=== PATIENT | female | born 1970 | race Caucasian/White ===

== ENCOUNTER → 2017-11-13 | Outpatient (CLI) | payer OTHER ==
--- NOTE | 2017-11-13 11:41 | MRI ---
HISTORY: Hyperprolactinemia, headaches with nausea, visual disturbances Study: MRI brain pituitary protocol with and without contrast Comparison: None Technique: Multisequence, multiplanar imaging of the brain was performed both before and after the ad ministration of 12 cc Omniscan. Dedicated high-resolution imaging through the sella was performed as well. Findings: Imaging of the brain demonstrates the midline structures to be intact. There is no intracranial hemor rhage, mass effect, or midline shift. Diffusion-weighted images demonstrate no restricted diffusion t o suggest acute or early subacute infarct. No extra-axial fluid collection is identified. The ventric les are symmetric and nondilated. There are a few, approximately 3-4, T2/FLAIR hyperintense foci with in the periventricular white matter, the largest measuring 8 mm in diameter and located adjacent to t he atrium of the left lateral ventricle. A very few punctate T2/FLAIR hyperintense foci are also iden tified within the subcortical white matter as well. These white-matter foci have a nonspecific morpho logy and distribution. Possible differential considerations include, but are not limited to, chronic migraines, chronic small vessel disease if the patient has the appropriate clinical risk factors for such, and atypical presentation of demyelinating disease. There is no abnormal enhancement or restric radha diffusion of the lesions. The basilar cisterns are patent. The bilateral cerebellopontine angles are unremarkable. Postcontrast images demonstrate no abnormal contrast enhancement within the brain. Incidental note is made of a 5 mm nonenhancing pineal cyst. Dedicated high-resolution imaging through the sella demonstrates the pituitary gland to be normal in size. The pituitary gland demonstrates homogeneous enhancement as well. No focal hypo enhancement is identified to suggest pituitary microadenoma. There is a punctate focus of hypoenhancement within the mid to posterior pituitary gland, visualized on sagittal images only and favored to be due to hetero geneous enhancement rather than a true lesion. The pituitary stalk is midline. The optic chiasm is un remarkable. The cavernous internal carotid arteries are unremarkable as well. IMPRESSION: 1. Unremarkable examination of the sella and pituitary gland. 2. Few nonspecific periventricular and subcortical white matter lesions demonstrating increased T2/FL AIR signal. Please see above discussion. 3. Incidental small pineal cyst. Reported By:
== END ==
LOC: RAD 08:35
PROVIDERS: ATTEND Nurse Practitioner Adult Health
DX: E22.1 Hyperprolactinemia (principal); R51 Headache; N92.6 Irregular menstruation, unspecified; H53.8 Other visual disturbances; R53.83 Other fatigue; E34.8 Other specified endocrine disorders
CPT/HCPCS: 70553